=== PATIENT | male | born 1960 ===

== ENCOUNTER 2018-01-31 11:44 | Outpatient (CLI) | payer OTHER ==
[~2018-01-31] VITALS: Ht 167.6 cm; Wt 79.4 kg
== END 2018-01-31 12:00 | disposition home or self-care (01) ==
LOC: OFIC 805 11:44
DX: G47.39 Other sleep apnea (principal); R09.81 Nasal congestion; J01.80 Other acute sinusitis; H61.23 Impacted cerumen, bilateral